=== PATIENT | male | born 1975 | race African-American/Black ===

== ENCOUNTER 2020-06-25 09:39 | Emergency (ER) | payer MEDICAID ==
[~2020-06-25] VITALS: Ht 185.4 cm; Wt 107.2 kg
[2020-06-25 09:45] VITALS: BP 144/83
[2020-06-25 11:26] LABS: INTERNATIONAL NORMALIZED RATIO 1.36 (0.93-1.1); PROTHROMBIN TIME 14.4 Seconds (9.6-11.5)
== END 2020-06-25 12:03 | disposition home or self-care (01) ==
LOC: ED 10:12
DX: Z00.00 Encounter for general adult medical examination without abnormal findings (principal); Z76.0 Encounter for issue of repeat prescription; Z79.01 Long term (current) use of anticoagulants
CPT/HCPCS: 36415; 85610; 99283

== ENCOUNTER 2020-09-15 03:32 | Emergency (ER) | payer MEDICAID ==
[~2020-09-15] VITALS: Ht 185.4 cm; Wt 106.9 kg
--- NOTE | 2020-09-15 03:49 | NUR ---
PT AMBULATORY TO ROOM. PT STATES HAVING INJURED HIS LFT RING FINGER PLAYING FOOTBALL, CMS INTACT, DEFORMATY NOTED, PT SITTING IN CHAIR, STATES PAIN IN MINIMAL. AWAITING ERP EVAL.
[2020-09-15 05:21] VITALS: BP 144/99
== END 2020-09-15 05:51 | disposition home or self-care (01) ==
LOC: ED 04:26
DX: S56.416A Strain of extensor muscle, fascia and tendon of left ring finger at forearm level, initial encounter (principal); X58.XXXA Exposure to other specified factors, initial encounter; Y93.89 Activity, other specified; Y92.009 Unspecified place in unspecified non-institutional (private) residence as the place of occurrence of the external cause; Y99.8 Other external cause status
CPT/HCPCS: 29130; 99283

== ENCOUNTER 2021-04-06 18:19 | Emergency (ER) | payer MEDICAID ==
[~2021-04-06] VITALS: Ht 185.4 cm; Wt 102.6 kg
[2021-04-06 18:23] VITALS: BP 110/75
[2021-04-06] MEDS ORDERED: KETOROLAC 30 MG/1 ML IM ONE (20:00)
[2021-04-06] MEDS ORDERED: KETOROLAC 30 MG/1 ML ONE (20:12)
== END 2021-04-06 20:46 | disposition home or self-care (01) ==
LOC: ED 20:35
DX: S43.422A Sprain of left rotator cuff capsule, initial encounter (principal); V49.9XXA Car occupant (driver) (passenger) injured in unspecified traffic accident, initial encounter; Y93.89 Activity, other specified; Y92.89 Other specified places as the place of occurrence of the external cause; Y99.8 Other external cause status
CPT/HCPCS: 73030; 96372; 99283; J1885

== ENCOUNTER 2021-05-09 22:07 | Emergency (ER) | payer MEDICAID ==
[~2021-05-09] VITALS: Ht 182.9 cm; Wt 106.0 kg
--- NOTE | 2021-05-09 23:35 | NUR ---
pt to room from lobby
--- NOTE | 2021-05-09 23:42 | NUR ---
pt c/o of cyst behing left ear for last couple days. pt takes warfarin. attached to monitors, vss, nadn. wctm
[2021-05-10] MEDS ORDERED: LIDOCAINE-MPF 1%, 5ML INFIL ONE
[2021-05-10] MEDS ORDERED: LIDOCAINE-MPF 1%, 5ML ONE ×2 (00:10)
[2021-05-10] MEDS ORDERED: BACITRACIN ZINC OINT 500U/GM, 0.9 GM ONE (00:57)
[2021-05-10 01:02] VITALS: BP 118/95
--- NOTE | 2021-05-10 01:06 | NUR ---
Patient/Caregiver given discharge instructions and they have confirmed that they understand the instructions. Patient ambulatory with steady gait. NAD, all questions answered appropriately, denies additional needs at this time. No personal belongings left in room after discharge.
== END 2021-05-10 01:07 | disposition home or self-care (01) ==
LOC: ED 05-10 01:01
DX: L02.11 Cutaneous abscess of neck (principal)
CPT/HCPCS: 10060; 99282